=== PATIENT | female | born 1990 | race Asian ===

== ENCOUNTER 2022-11-13 17:01 | Emergency (ER) | payer BC ==
[~2022-11-13] VITALS: Ht 167.6 cm; Wt 49.4 kg
--- NOTE | 2022-11-13 18:20 | NUR ---
DR ERWIN AT BED SIDE FOR EVAL
--- NOTE | 2022-11-13 18:25 | NUR ---
C/O RIGHT ELBOW PAIN AND SWELLING S/P MECHANICAL FALL 2 HOURS AGO.PKLAYING WITH HER BABY
[2022-11-13] MEDS ORDERED: KETOROLAC TROMETHAMINE INJ 60 MG/2 ML VIAL IM ONE (18:30)
--- NOTE | 2022-11-13 18:30 | NUR ---
PLANNING AND ANALYSIS MANAGER AT BEDSIDE
[2022-11-13] MEDS ORDERED: KETOROLAC TROMETHAMINE INJ 30 MG/ML VIAL ONE (18:34)
--- NOTE | 2022-11-13 18:43 | NUR ---
GAVE IM TORADOL
[2022-11-13] MEDS ORDERED: NAPR-1009 PO (19:03)
[2022-11-13 19:24] VITALS: BP 120/80
== END 2022-11-13 19:24 | disposition home or self-care (01) ==
LOC: ER 17:11
DX: S42.491A Other displaced fracture of lower end of right humerus, initial encounter for closed fracture (principal); Z88.0 Allergy status to penicillin; X58.XXXA Exposure to other specified factors, initial encounter; Y93.89 Activity, other specified; Y92.89 Other specified places as the place of occurrence of the external cause; Y99.8 Other external cause status
CPT/HCPCS: 99283; 29105; 73080; 96372; J1885